=== PATIENT | male | born 1940 | race Hispanic/Latino ===

== ENCOUNTER → 2021-01-26 | Day surgery (SDC) | payer MEDICARE, OTHER ==
[2021-01-21 10:35] LABS: BASOPHILS % 0.4 % (0.0-1.0); EOSINOPHILS # (AUTO) 0.1 (0.0-0.4); HEMATOCRIT 40.5 % (38.2-49.6); HEMOGLOBIN 12.9 g/dL (14.0-18.0); LYMPHOCYTES % 26.7 % (18.0-39.1); MEAN CORPUSCULAR HEMOGLOBIN 28.4 pg (28-32); MEAN CORPUSCULAR HGB CONC 31.9 g/dL (31-35); MONOCYTES # (AUTO) 0.9 (0.2-0.8); MONOCYTES % 7.6 % (4.4-11.3); NEUTROPHILS # (AUTO) 7.2 (2.1-6.9); NEUTROPHILS % 63.4 % (38.7-80.0); PLATELET COUNT 325 x10e3/uL (140-360); RED BLOOD COUNT 4.55 x10e6/uL (4.3-5.7); RED CELL DISTRIBUTION WIDTH 18.4 % (11.7-14.4)
[2021-01-21 10:48] LABS: ANION GAP 19.2 mmol/L (8-16); CALCIUM 9.6 mg/dL (8.4-10.2); CREATININE, SERUM 1.26 mg/dL (0.72-1.25); POTASSIUM 4.2 mmol/L (3.5-5.1)
[~2021-01-26] MED LIST: ACTOS15 MG PO; AMIODARONE HCL200 MG PO; ASPIRIN81 MG PO; CENTRUM ADULTS1 EACH PO; CLOPIDOGREL75 MG PO; DEXAMETHASONE SOD PHOS INJ 4 MG/ML VIAL ONE; FENTANYL CITRATE/PF 100MCG/2 ML INJ ONE; FISH OIL 1,2001 EAC1 PO; GINKGO BILOBA60 M1 PO; HYDROCHLOROTHIA25 MG PO; JANUMET 50-1,01 EACH PO; LIDOCAINE HCL 2% LOCAL INJ 5 ML SDV VIAL INJ ONE; METOPROLOL SUCC25 MG PO; ONDANSETRON HCL INJ 2MG/ML 2ML 2 MG/ML VIAL ONE; POVIDONE IODINE 0.05% 0.05 % ML PO ONE; PROPOFOL IV EMULSION 10 MG/ML 20 ML VIAL ONE; RAMIPRIL5 MG PO; SEVOFLURANE INHAL SOLN 250 ML PEN BTL ONE; SIMVASTATIN40 MG PO; SODIUM CHLORIDE 0.9% 50ML 50 ML ONE; VITAMIN C500 MG PO
[2021-01-26 08:10] VITALS: BP 157/99
== END | disposition home or self-care (01) ==
LOC: OR 06:04 → EDBD 12:00
PROVIDERS: ATTEND Specialist
DX: D17.21 Benign lipomatous neoplasm of skin and subcutaneous tissue of right arm (principal); E11.9 Type 2 diabetes mellitus without complications; I10 Essential (primary) hypertension; I45.10 Unspecified right bundle-branch block; Z79.02 Long term (current) use of antithrombotics/antiplatelets; Z79.82 Long term (current) use of aspirin
CPT/HCPCS: 11404; 36415 ×2; 71046; 80048; 82948; 85025; 88304; 93005; J0690; J1100; J2001; J2405; J2704; J3010